=== PATIENT | female | born 1985 | race American Indian/Alaskan Native ===

== ENCOUNTER 2016-10-25 20:44 | Emergency (ER) | payer MEDICAID, OTHER ==
[2016-10-25 20:53] VITALS: BP 127/72; PULSE 96; RESP 18; TEMP 98; O2SAT 98
--- NOTE | 2016-10-25 21:38 | ED PDOC ---
HPI: Abdomen Time Seen by Provider: 10/25/16 20:59 Chief Complaint (Nursing): Abdominal Pain Chief Complaint (Provider): Lower abdomen pain History Per: Patient History/Exam Limitations: no limitations Onset/Duration Of Symptoms: Days Outside of [place] travel?: No Current Symptoms Are (Timing): Still Present Location Of Pain/Discomfort: RLQ, LLQ Quality Of Discomfort: "Pain" Additional Complaint(s): The pt is a 31yo female, , LMP on 09/19/16, currently 5 weeks , presents to the ED for evaluation of lower abdominal pain which feels like cramping. Pt reports she noticed an episode of vaginal spotting a couple days ago which has since resolved. Pt denies any nausea, vomiting, urinary symptoms. States she came to the ED today to make sure everything was "okay with the baby. " Says she is unsure if she will keep the baby. She offers no additional medical complaints. Abnormal Vaginal Bleeding: No Last Menstral Period: 09/19/16 : 6 Para: 2 Past Medical History Reviewed: Historical Data, Nursing Documentation, Vital Signs Vital Signs: Last Vital Signs Temp 98 F 10/25/16 20:50 Pulse 96 H 10/25/16 20:50 Resp 18 10/25/16 20:50 BP 127/72 10/25/16 20:50 Pulse Ox 98 10/25/16 22:46 - Medical History PMH: Asthma, Depression, Migraine - Family History Family History: States: Unknown Family Hx - Home Medications Home Medications: Ambulatory Orders Medication Instructions Recorded Ibuprofen [Motrin Tab] 600 mg PO Q6 #30 tab 10/25/16 - Allergies Allergies/Adverse Reactions: Allergies Allergy/AdvReac Type Severity Reaction Status Date / Time No Known Allergies Allergy Verified 11/14/15 13:06 Review of Systems ROS Statement: Except As Marked, All Systems Reviewed And Found Negative Gastrointestinal: Positive for: Abdominal Pain. Negative for: Nausea, Vomiting Genitourinary Female: Negative for: Dysuria, Frequency, Hematuria, Vaginal Bleeding Physical Exam - Reviewed Nursing Documentation Reviewed: Yes Vital Signs Reviewed: Yes - Physical Exam Appears: Positive for: Well, Non-toxic, No Acute Distress Head Exam: Positive for: ATRAUMATIC, NORMAL INSPECTION, NORMOCEPHALIC Skin: Positive for: Normal Color, Warm Eye Exam: Positive for: Normal appearance Neck: Positive for: Normal, Supple Cardiovascular/Chest: Positive for: Regular Rate, Rhythm Respiratory: Positive for: Normal Breath Sounds. Negative for: Respiratory Distress Gastrointestinal/Abdominal: Positive for: Normal Exam, Soft. Negative for: Tenderness Pelvic Exam: Positive for: External Exam Normal, Other (closed os, normal pelvic exam) Back: Positive for: Normal Inspection Extremity: Positive for: Normal ROM. Negative for: Deformity, Swelling Neurologic/Psych: Positive for: Alert, Oriented - Laboratory Results Result Diagrams: 10/25/16 21:35 10/25/16 21:35 - ECG O2 Sat by Pulse Oximetry: 98 (RA) Pulse Ox Interpretation: Normal Medical Decision Making Medical Decision Making: Time: 2109 Impression: Abdominal pain in Plan: -- Pelvic exam with nurse Iesha Gill as associate justice -- Bloodwork -- Urinalysis -- US OB 1st Trimester Reassess Time: 2244 US OB FINDINGS: Gestation: No intrauterine gestational sac. Uterus/cervix: Endometrium: 0.9 cm in thickness, heterogeneous. Closed cervix. Ovaries: Normal ovaries. Free fluid: Small free fluid within pelvis. Other findings: 4.3 x 3.1 x 3.6 cm predominantly heterogeneous lesion with eccentric hypoechoic area within LEFT adnexal region. IMPRESSION: 1. No intrauterine gestation. DDX: Early IUP, missed , ectopic . 2. LEFT adnexal lesion, indeterminate. Ectopic not excluded. 3. Incidental/non-acute findings are described above 2245: Pt. informed of results, pt. not . Will f/u w/ [facility]. Scribe Attestation: Documented by Nhung Chandler acting as a scribe for Edgar Shah MD. Provider Attestation: All medical record entries made by the Scribe were at my direction and personally dictated by me. I have reviewed the chart and agree that the record accurately reflects my personal performance of the history, physical exam, medical decision making, and the department course for this patient. I have also personally directed, reviewed, and agree with the discharge instructions and disposition. Disposition - Clinical Impression Clinical Impression: Pelvic pain - Disposition [facility] Disposition: Routine/Home Disposition Time: 22:45 Condition: STABLE Prescriptions: Ibuprofen [Motrin Tab] 600 mg PO Q6 #30 tab Instructions: Pelvic Pain in Women (ED)
[2016-10-25 21:50] LABS: BASO % 0.2 % (0.0-2.0); EOS # 0.4 K/uL (0.0-0.7); EOS % 5.3 % (0.0-4.0); HEMOGLOBIN 10.5 g/dL (12.0-16.0); LYMPH # 2.4 K/uL (1.0-4.3); LYMPH % 31.4 % (20.0-40.0); MEAN CELL VOLUME 74.2 fl (81.0-99.0); MEAN CORPUSCULAR HEMOGLOBIN 23.5 pg (27.0-31.0); MEAN CORPUSCULAR HGB CONC 31.6 g/dL (33.0-37.0); MEAN PLATELET VOLUME 7.4 fl (7.2-11.7); MONO # 0.7 K/uL (0.0-0.8); MONO % 8.8 % (0.0-10.0); NEUT # 4.2 K/uL (1.8-7.0); NEUT % 54.3 % (50.0-75.0); RBC 4.45 Mil/uL (3.80-5.20); RED CELL DISTRIBUTION WIDTH 15.4 % (11.5-14.5); WHITE BLOOD COUNT 7.8 K/uL (4.8-10.8)
[2016-10-25 21:56] LABS: SQUAMOUS EPITHIAL 7 /hpf (0-5); URINE BILIRUBIN NEGATIVE (NEGATIVE); URINE BLOOD SMALL (NEGATIVE); URINE CLARITY SLIGHTY-CLOUDY (Clear); URINE COLOR YELLOW (YELLOW); URINE GLUCOSE (UA) NEG (Normal); URINE LEUKOCYTE ESTERASE NEG Leu/uL (Negative); URINE NITRATE NEGATIVE (NEGATIVE); URINE PROTEIN NEGATIVE (NEGATIVE); URINE UROBILINOGEN 0.2-1.0 mg/dL (0.2-1.0)
[2016-10-25 22:00] LABS: BLOOD UREA NITROGEN 16 mg/dl (7-17); CALCIUM 9.5 mg/dL (8.4-10.2); GFR AFRICAN-AMERICAN > 60; GFR NON-AFRICAN AMERICAN > 60
--- NOTE | 2016-10-25 22:44 | US ---
EXAM: US , Transvaginal CLINICAL HISTORY: 31 years old, female; Pain; complicated by abdominal or pelvic pain; Lower; First trimester; Gestational age or lmp: 09/19/2016; ; Patient HX: Pt states pain; Additional info: R/O ectopic TECHNIQUE: Real-time transvaginal obstetrical ultrasound of the maternal pelvis and a first trimester with image documentation. Transvaginal imaging was used for better evaluation of the fetus and adnexa. COMPARISON: No relevant prior studies available. FINDINGS: Gestation: No intrauterine gestational sac. Uterus/cervix: Endometrium: 0.9 cm in thickness, heterogeneous. Closed cervix. Ovaries: Normal ovaries. Free fluid: Small free fluid within pelvis. Other findings: 4.3 x 3.1 x 3.6 cm predominantly heterogeneous lesion with eccentric hypoechoic area within LEFT adnexal region. IMPRESSION: 1. No intrauterine gestation. DDX: Early IUP, missed , ectopic . 2. LEFT adnexal lesion, indeterminate. Ectopic not excluded. 3. Incidental/non-acute findings are described above.
== END 2016-10-25 22:59 | disposition home or self-care (01) ==
LOC: H.ER 20:44
DX: R10.2 Pelvic and perineal pain (principal)

== ENCOUNTER 2018-09-17 11:00 | Emergency (ER) | payer MEDICAID ==
[2018-09-17 11:10] VITALS: BMI 25.2
[2018-09-17 11:12] VITALS: BP 120/83; RESP 18; TEMP 98.7; O2SAT 99
--- NOTE | 2018-09-17 11:34 | ED PDOC ---
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 States rash subsequently developed thickened rash over it.) Past Medical History Reviewed: Historical Data, Nursing Documentation, Vital Signs Vital Signs: Last Vital Signs Temp 98.7 F 09/17/18 11:10 Pulse 99 H 09/17/18 11:10 Resp 18 09/17/18 11:10 BP 120/83 09/17/18 11:10 Pulse Ox 99 09/17/18 11:10 Primary Care Provider: FAMILY PROVIDER,NO - Medical History PMH: Asthma, Depression, Migraine - Family History Family History: States: Unknown Family Hx - Home Medications Home Medications: Ambulatory Orders Medication Instructions Recorded Ibuprofen [Motrin Tab] 600 mg PO Q6 #30 tab 10/25/16 Naproxen [Naprosyn] 500 mg PO Q12H #20 tab 02/25/17 Butenafine HCl [Lotrimin Ultra] 0.5 gm TP BID #30 cream..g. 09/17/18 - Allergies Allergies/Adverse Reactions: Allergies Allergy/AdvReac Type Severity Reaction Status Date / Time No Known Allergies Allergy Verified 09/17/18 11:27 Review of Systems ROS Statement: Except As Marked, All Systems Reviewed And Found Negative Physical Exam - Reviewed Nursing Documentation Reviewed: Yes Vital Signs Reviewed: Yes - Physical Exam Appears: Positive for: Well, Non-toxic, No Acute Distress Head Exam: Positive for: ATRAUMATIC, NORMAL INSPECTION, NORMOCEPHALIC Skin: Positive for: Normal Color, Warm, DRY Eye Exam: Positive for: EOMI, Normal appearance, PERRL ENT: Positive for: Normal ENT Inspection Neck: Positive for: Normal, Painless ROM Cardiovascular/Chest: Positive for: Regular Rate, Rhythm Respiratory: Positive for: CNT, Normal Breath Sounds Gastrointestinal/Abdominal: Positive for: Normal Exam, Soft Back: Positive for: Normal Inspection Extremity: Positive for: Normal ROM, Other (circular lesions bilateral wrist volar surface with thickened dark material.) Neurological/Psych: Positive for: Awake, Alert, Normal Tone - ECG O2 Sat by Pulse Oximetry: 99 - Progress ED Course And Treament: fungal cx sent Disposition - Clinical Impression Clinical Impression: Fungal infection of skin - Patient ED Disposition Is Patient to be Admitted: No - Disposition Referrals: Mario Clark MD [Staff Provider] - Disposition: Routine/Home Disposition Time: 11:44 Condition: FAIR Prescriptions: Butenafine HCl [Lotrimin Ultra] 0.5 gm TP BID #30 cream..g. Instructions: Fungal Skin Rash (DC)
[2018-09-17 12:09] VITALS: PULSE 86
== END 2018-09-17 11:44 | disposition home or self-care (01) ==
LOC: H.ER 11:00
DX: B36.9 Superficial mycosis, unspecified (principal)